=== PATIENT | female | born 1970 | race Caucasian/White ===

== ENCOUNTER 2018-03-18 02:38 | Inpatient (IN) | payer MEDICAID ==
[~2018-03-18] VITALS: Ht 165.1 cm; Wt 102.2 kg
[2018-03-18 03:02] VITALS: Ht 165.1 cm; Wt 102.2 kg
[2018-03-18 04:10] LABS: BASOPHIL % 0.2 % (0-2); PLATELET COUNT 331 x10^3mcL (130-400); RED CELL DISTRIBUTION WIDTH 13.5 % (11.5-14.5)
[2018-03-18 04:27] LABS: CALCIUM 9.1 mg/dL (8.5-10.1); CARBON DIOXIDE 25.4 mmol/L (21-32); CHLORIDE SERUM 100 mmol/L (98-107); CREATININE SERUM 0.8 mg/dL (0.6-1.0); GFR1 > 60 mL/min; GLUCOSE SERUM 140 mg/dL (74-106); POTASSIUM SERUM 3.3 mmol/L (3.5-5.1); SODIUM SERUM 137 mmol/L (136-145)
[2018-03-18 04:31] LABS: ALKALINE PHOSPHATASE 188 U/L (46-116); ALT/SGPT 82 U/L (14-59); AST/SGOT 25 U/L (15-37); LIPASE 130 IU/L (73-393); TOTAL PROTEIN, SERUM 7.9 g/dL (6.4-8.2)
[2018-03-18 04:32] LABS: ALBUMIN 3.3 g/dL (3.4-5.0)
[2018-03-18 07:40] LABS: T3 TOTAL 1.92 ng/mL
[2018-03-18 07:44] LABS: CHOLESTEROL/HDL RATIO 3.5; PHOSPHOROUS 3.8 mg/dL (2.5-4.9)
[2018-03-18 07:51] LABS: FREE T4 1.43 ng/dL (0.76-1.46); FREE THYROXINE INDEX 3.5 ug/dL (1.4-4.5); T4(THYROXINE) 10.2 ug/dL (4.7-13.3)
[2018-03-18 07:57] VITALS: BP 123/66
[2018-03-18 08:11] LABS: AMPHETAMINE QUAL UR NONE DETECTED (See below)
[2018-03-18 08:12] LABS: microscopic required? YES; urine erythrocyte NEGATIVE (NEGATIVE)
[2018-03-18 16:59] VITALS: BP 112/65
[2018-03-18 20:26] VITALS: BP 103/64
[2018-03-19 04:56] VITALS: BP 114/65
[2018-03-19 06:00] LABS: BASOPHIL % 0.6 % (0-2); PLATELET COUNT 293 x10^3mcL (130-400); RED CELL DISTRIBUTION WIDTH 13.8 % (11.5-14.5)
[2018-03-19 06:27] LABS: CALCIUM 8.5 mg/dL (8.5-10.1); CARBON DIOXIDE 24.8 mmol/L (21-32); CHLORIDE SERUM 103 mmol/L (98-107); CREATININE SERUM 0.6 mg/dL (0.6-1.0); GFR1 > 60 mL/min; GLUCOSE SERUM 120 mg/dL (74-106); MAGNESIUM 1.9 mg/dL (1.8-2.4); PHOSPHOROUS 3.5 mg/dL (2.5-4.9); SODIUM SERUM 137 mmol/L (136-145)
[2018-03-19 16:34] VITALS: BP 110/57
[2018-03-19 19:25] VITALS: BP 110/60
[2018-03-20 05:14] VITALS: BP 111/71
[2018-03-20 06:22] LABS: BASOPHIL % 0.4 % (0-2); PLATELET COUNT 291 x10^3mcL (130-400); RED CELL DISTRIBUTION WIDTH 13.5 % (11.5-14.5)
[2018-03-20 06:50] LABS: CALCIUM 8.7 mg/dL (8.5-10.1); CARBON DIOXIDE 28.1 mmol/L (21-32); CHLORIDE SERUM 104 mmol/L (98-107); CREATININE SERUM 0.6 mg/dL (0.6-1.0); GFR1 > 60 mL/min; GLUCOSE SERUM 114 mg/dL (74-106); MAGNESIUM 2.1 mg/dL (1.8-2.4); PHOSPHOROUS 3.6 mg/dL (2.5-4.9); POTASSIUM SERUM 4.1 mmol/L (3.5-5.1); SODIUM SERUM 137 mmol/L (136-145)
[2018-03-20 08:16] LABS: BILIRUBIN DIRECT 0.23 mg/dL (0.0-0.2); BILIRUBIN TOTAL 0.4 mg/dL (0.20-1.00); TOTAL PROTEIN, SERUM 6.3 g/dL (6.4-8.2)
[2018-03-20 08:17] LABS: ALBUMIN 2.4 g/dL (3.4-5.0)
[2018-03-20 08:40] VITALS: BP 125/77
[2018-03-20] MEDS ORDERED: NORCO1 TA2 PO (09:34)
[2018-03-20 12:08] VITALS: BP 125/77
== END 2018-03-20 16:35 | disposition home or self-care (01) | DRG 263 ==
LOC: ED 02:38 → MU 06:22 → EDBD 06:22 → MU 07:36
PROVIDERS: Emergency Medicine; Surgery; ADMIT Family Medicine
PROC: 0FT44ZZ Resection of Gallbladder, Percutaneous Endoscopic Approach (ICD-10-PCS; principal; 2018-03-19 07:30)
DX: K80.20 Calculus of gallbladder without cholecystitis without obstruction (principal); K65.9 Peritonitis, unspecified; E44.1 Mild protein-calorie malnutrition; E87.6 Hypokalemia; R74.0 Nonspecific elevation of levels of transaminase and lactic acid dehydrogenase [LDH]; R73.03 Prediabetes; N39.0 Urinary tract infection, site not specified; E02 Subclinical iodine-deficiency hypothyroidism; Z68.32 Body mass index [BMI] 32.0-32.9, adult
CPT/HCPCS: 82962; 83880; 84439; 87046; 87046-59; J0696; J1170; J2270; J2405; J2543; J2704; J2710; J3010; J3490; J7030; J7120; Q0092

== ENCOUNTER 2018-07-21 14:30 | Emergency (ER) | payer MEDICAID ==
[~2018-07-21] VITALS: Ht 170.2 cm; Wt 99.3 kg
[~2018-07-21 14:30] MED LIST: NORCO1 TA2 PO
[2018-07-21 14:37] VITALS: Ht 170.2 cm; Wt 99.3 kg
[2018-07-21 18:29] LABS: BASOPHIL % 0.5 % (0-2); PLATELET COUNT 271 x10^3mcL (130-400); RED CELL DISTRIBUTION WIDTH 14.2 % (11.5-14.5)
[2018-07-21 18:38] LABS: CALCIUM 9.6 mg/dL (8.5-10.1); CARBON DIOXIDE 29.6 mmol/L (21-32); CHLORIDE SERUM 106 mmol/L (98-107); CREATININE SERUM 0.6 mg/dL (0.6-1.0); GFR1 > 60 mL/min; GLUCOSE SERUM 126 mg/dL (74-106); POTASSIUM SERUM 4.1 mmol/L (3.5-5.1); SODIUM SERUM 142 mmol/L (136-145)
[2018-07-21 18:42] LABS: ALBUMIN 3.5 g/dL (3.4-5.0); ALKALINE PHOSPHATASE 145 U/L (46-116); ALT/SGPT 61 U/L (14-59); AST/SGOT 23 U/L (15-37); BILIRUBIN TOTAL 0.23 mg/dL (0.20-1.00); LIPASE 896 IU/L (73-393); TOTAL PROTEIN, SERUM 7.4 g/dL (6.4-8.2)
[2018-07-21 21:19] VITALS: BP 117/71
== END 2018-07-21 21:19 | disposition home or self-care (01) ==
LOC: ED 14:30
PROVIDERS: Emergency Medicine
DX: K85.90 Acute pancreatitis without necrosis or infection, unspecified (principal); L03.316 Cellulitis of umbilicus; Z98.890 Other specified postprocedural states
CPT/HCPCS: J0696; J7030; Q0092